=== PATIENT | female | born 1990 | race African-American/Black ===

== ENCOUNTER 2016-05-31 13:56 | Emergency (ER) | payer MEDICAID ==
[~2016-05-31] VITALS: Ht 170.2 cm; Wt 71.0 kg
[2016-05-31] MEDS ORDERED: SODIUM CHLORIDE 0.9% 1,000 ML IV ONE (17:20)
[2016-05-31] MEDS ORDERED: ONDANSETRON HCL 4MG/2ML VIAL IV ONE (17:30)
[2016-05-31 17:46] LABS: BASOPHILS % 0.5 % (0.0-2.0); EOSINOPHILS % 0.7 % (0.0-5.0); HEMOGLOBIN. 10.8 g/dL (12.0-16.0); LYMPHOCYTES % 16.6 % (20.0-50.0); MEAN CORPUSCULAR HEMOGLOBIN 32.1 pg (28.0-32.0); MEAN CORPUSCULAR HGB CONC 33.7 g/dL (31.0-37.0); MEAN CORPUSCULAR VOLUME 95.1 fL (81.0-99.0); MEAN PLATELET VOLUME 8.3 fl (7.4-10.4); MONOCYTES % 6.4 % (2.0-8.0); NEUTROPHILS % 75.8 % (40.0-76.0); PLATELET 167 x1000/uL (130-400); RED BLOOD CELL COUNT 3.37 mill/uL (4.2-5.4); RED CELL DISTRIBUTION WIDTH 14.1 % (11.6-14.6); WHITE BLOOD COUNT 9.9 x1000/uL (4.5-11.0)
[2016-05-31 17:54] LABS: CLARITY URINE CLOUDY (CLEAR); COLOR URINE DARK YELLOW (YELLOW); GLUCOSE URINE NEGATIVE (NEGATIVE); KETONES URINE 3+ (NEGATIVE); LEUKOCYTE ESTERASE URINE 2+ (NEGATIVE); NITRITE URINE NEGATIVE (NEGATIVE); OCCULT BLOOD URINE 2+ (NEGATIVE); PH URINE 7.5 (4.5-8.0); PROTEIN URINE 1+ (NEGATIVE)
[2016-05-31 17:57] LABS: ANION GAP 13; CARBON DIOXIDE 26 mEq/L (21-32); CHLORIDE 102 mEq/L (98-107); INDEX HEMOLYSI 1 (1-3); INDEX ICTERIC 1 (1-4); INDEX LIPEMIC 1 (1-3); UREA NITROGEN BLOOD 7 mg/dL (7-21); eGFR > 60 mL/min (>60)
[2016-05-31 18:14] LABS: B-HCG QUANTITATIVE 9931 mIU/mL (<3)
[2016-05-31] MEDS ORDERED: DEXT 5%/0.45% NACL 500 ML IV ONE (18:15)
[2016-05-31 18:22] LABS: BACTERIA URINE 2+; SQUAMOUS EPITHELIAL CELL URINE 2+ /lpf (RARE/1+); WBC URINE 25-50 /hpf (0-2)
[2016-05-31 20:45] VITALS: BP 105/46
== END 2016-05-31 20:45 | disposition home or self-care (01) ==
LOC: ER 13:57
DX: O20.0 Threatened abortion (principal); O23.42 Unspecified infection of urinary tract in pregnancy, second trimester; O21.1 Hyperemesis gravidarum with metabolic disturbance; O26.872 Cervical shortening, second trimester; O26.892 Other specified pregnancy related conditions, second trimester; Z88.0 Allergy status to penicillin; J45.909 Unspecified asthma, uncomplicated; Z3A.17 17 weeks gestation of pregnancy
CPT/HCPCS: 36415; 76805; 80048; 81001; 84702; 85025; 86850; 86900; 86901; 96361; 96374; 99285; J2405; J7030; X7700

== ENCOUNTER 2016-06-06 15:53 | Inpatient (IN) | payer MEDICAID ==
[~2016-06-06] VITALS: Ht 165.1 cm; Wt 70.8 kg
[2016-06-06] MEDS ORDERED: SODIUM CHLORIDE 0.9% 1,000 ML IV ONE ×2 (17:22→22:22)
[2016-06-06] MEDS ORDERED: ONDANSETRON HCL 4MG/2ML VIAL IV ONE ×2 (17:30→19:45)
[2016-06-06 17:48] LABS: BASOPHILS % 0.4 % (0.0-2.0); EOSINOPHILS % 0.1 % (0.0-5.0); HEMATOCRIT. 34.2 % (36.0-48.0); HEMOGLOBIN. 11.3 g/dL (12.0-16.0); LYMPHOCYTES % 7.2 % (20.0-50.0); MEAN CORPUSCULAR HEMOGLOBIN 31.8 pg (28.0-32.0); MEAN CORPUSCULAR VOLUME 96.3 fL (81.0-99.0); MEAN PLATELET VOLUME 9.3 fl (7.4-10.4); NEUTROPHILS % 89.3 % (40.0-76.0); PLATELET 155 x1000/uL (130-400); RED BLOOD CELL COUNT 3.55 mill/uL (4.2-5.4); RED CELL DISTRIBUTION WIDTH 13.8 % (11.6-14.6); WHITE BLOOD COUNT 13.3 x1000/uL (4.5-11.0)
[2016-06-06 17:51] LABS: CHLORIDE 103 mEq/L (98-107); INDEX HEMOLYSI 1 (1-3); INDEX ICTERIC 1 (1-4); INDEX LIPEMIC 1 (1-3)
[2016-06-06 18:04] LABS: ANION GAP 17; CALCIUM 9.1 mg/dL (8.5-10.1); CARBON DIOXIDE 22 mEq/L (21-32); UREA NITROGEN BLOOD 5 mg/dL (7-21); eGFR > 60 mL/min (>60)
[2016-06-06 18:16] LABS: B-HCG QUANTITATIVE 11351 mIU/mL (<3)
[2016-06-06] MEDS ORDERED: KETOROLAC 30MG/ML VIAL IV ONE (19:45)
[2016-06-06 21:26] LABS: CLARITY URINE CLOUDY (CLEAR); COLOR URINE YELLOW (YELLOW); GLUCOSE URINE NEGATIVE (NEGATIVE); KETONES URINE 2+ (NEGATIVE); LEUKOCYTE ESTERASE URINE 1+ (NEGATIVE); NITRITE URINE NEGATIVE (NEGATIVE); OCCULT BLOOD URINE TRACE (NEGATIVE); PH URINE 7.5 (4.5-8.0); PROTEIN URINE TRACE (NEGATIVE); SPECIFIC GRAVITY URINE 1.023 (1.005-1.030)
[2016-06-06 21:38] LABS: BACTERIA URINE TRACE; SQUAMOUS EPITHELIAL CELL URINE FEW /lpf (RARE/1+); YEAST URINE 1+
[2016-06-06] MEDS ORDERED: NITROFURANTOIN 100MG M/M CAPSULE PO ONE (21:45)
[2016-06-06] MEDS ORDERED: ONDANSETRON 4MG ODT PO PRN (22:30)
[2016-06-07] VITALS (7 sets, daily range): BP systolic 104–125; BP diastolic 63–82
[2016-06-07] MEDS ORDERED: ONDANSETRON HCL 4MG/2ML VIAL ONE (01:19)
[2016-06-07] MEDS: POTASSIUM CHLORIDE INJ 20 MEQ in LACTATED RINGERS 1,000 ML IV SCH ×4 (02:17→21:02)
[2016-06-07] MEDS: PANTOPRAZOLE SODIUM 40 MG/VIAL IV SCH ×2 (02:21→08:56)
[2016-06-07] MEDS: ONDANSETRON HCL 4MG/2ML VIAL IV PRN ×5 (02:21→21:01)
[2016-06-07] MEDS: DOCUSATE SODIUM 100MG CAPSULE PO SCH (17:14)
[2016-06-07] MEDS ORDERED: BUTORPHANOL TARTRATE 2 MG/ML VIAL IV PRN (22:15)
[2016-06-08] MEDS ORDERED: BUTORPHANOL TARTRATE 2 MG/ML VIAL IV PRN (00:45)
[2016-06-08 00:59] VITALS: BP 100/56
[2016-06-08] MEDS: ONDANSETRON HCL 4MG/2ML VIAL IV PRN ×2 (01:00→08:44)
[2016-06-08 04:00] VITALS: BP 95/49
[2016-06-08] MEDS: POTASSIUM CHLORIDE INJ 20 MEQ in LACTATED RINGERS 1,000 ML IV SCH ×2 (07:06→18:57)
[2016-06-08 08:00] VITALS: BP 95/44
[2016-06-08] MEDS: DOCUSATE SODIUM 100MG CAPSULE PO SCH ×2 (08:42→18:57)
[2016-06-08] MEDS: PANTOPRAZOLE SODIUM 40 MG/VIAL IV SCH (08:43)
[2016-06-08 12:00] VITALS: BP 93/58
[2016-06-08 16:00] VITALS: BP 105/58
[2016-06-08 19:51] VITALS: BP 93/58
== END 2016-06-08 20:30 | disposition home or self-care (01) | DRG 566 ==
LOC: ER 15:56 → 6EST 22:23
PROVIDERS: ADMIT Obstetrics & Gynecology; ATTEND Obstetrics & Gynecology
DX: O21.0 Mild hyperemesis gravidarum (principal); G40.909 Epilepsy, unspecified, not intractable, without status epilepticus; J45.909 Unspecified asthma, uncomplicated; O99.512 Diseases of the respiratory system complicating pregnancy, second trimester; Z88.0 Allergy status to penicillin; Z3A.19 19 weeks gestation of pregnancy; O99.89 Other specified diseases and conditions complicating pregnancy, childbirth and the puerperium
CPT/HCPCS: 36415; 76805; 80048; 81001; 84702; 85025; 86850; 86900; 96361; 96374; 96375; 96376; 99285; C9113; J0595; J1885; J2405; J3480; J7030; J7120; Q0162

== ENCOUNTER 2016-06-28 14:34 | Observation (INO) | payer SELFPAY ==
[~2016-06-28] VITALS: Ht 170.2 cm; Wt 70.8 kg
[2016-06-28] MEDS ORDERED: ONDA4TAB5 PO (15:37)
[2016-06-28] MEDS ORDERED: PREN-88 PO (15:37)
[2016-06-28] MEDS ORDERED: LACTATED RINGERS 1,000 ML IV SCH (16:00)
[2016-06-28] MEDS ORDERED: ONDANSETRON HCL 4MG/2ML VIAL IV SCH (16:00)
[2016-06-28 16:02] LABS: BASOPHILS % 0.1 % (0.0-2.0); HEMATOCRIT. 33.8 % (36.0-48.0); HEMOGLOBIN. 11.3 g/dL (12.0-16.0); LYMPHOCYTES % 9.3 % (20.0-50.0); MEAN CORPUSCULAR HEMOGLOBIN 31.6 pg (28.0-32.0); MEAN CORPUSCULAR HGB CONC 33.4 g/dL (31.0-37.0); MEAN CORPUSCULAR VOLUME 94.7 fL (81.0-99.0); MEAN PLATELET VOLUME 9.3 fl (7.4-10.4); MONOCYTES % 5.8 % (2.0-8.0); NEUTROPHILS % 84.8 % (40.0-76.0); PLATELET 186 x1000/uL (130-400); RED BLOOD CELL COUNT 3.57 mill/uL (4.2-5.4); RED CELL DISTRIBUTION WIDTH 13.7 % (11.6-14.6); WHITE BLOOD COUNT 12.2 x1000/uL (4.5-11.0)
[2016-06-28 16:16] LABS: ALANINE AMINOTRANSFERASE 79 IU/L (13-61); ALBUMIN 3.8 g/dL (3.4-5.0); ANION GAP 18; CALCIUM 9.9 mg/dL (8.5-10.1); CARBON DIOXIDE 22 mEq/L (21-32); CHLORIDE 102 mEq/L (98-107); INDEX HEMOLYSI 5 (1-3); INDEX ICTERIC 1 (1-4); INDEX LIPEMIC 1 (1-3); UREA NITROGEN BLOOD 7 mg/dL (7-21); eGFR > 60 mL/min (>60)
[2016-06-28] MEDS ORDERED: ONDANSETRON HCL 4MG/2ML VIAL IV PRN (17:15)
[2016-06-28] MEDS ORDERED: SODIUM CHLORIDE 0.9% INJ 3ML FLUSH IVF SCH (18:00)
[2016-06-28 18:15] VITALS: BP 111/65
[2016-06-28] MEDS: ONDANSETRON HCL 4MG/2ML VIAL IV PRN ×2 (19:36→23:54)
[2016-06-28] MEDS: LACTATED RINGERS 1,000 ML IV SCH (19:43)
[2016-06-28 21:00] VITALS: BP 107/89
[2016-06-29] MEDS: LACTATED RINGERS 1,000 ML IV SCH ×3 (03:28→17:36)
[2016-06-29] MEDS: ONDANSETRON HCL 4MG/2ML VIAL IV PRN ×5 (03:56→20:13)
[2016-06-29 06:00] VITALS: BP 110/70
== END 2016-06-29 20:30 | disposition home or self-care (01) ==
LOC: ER 14:46 → L&D 14:54 → 7EST PP/OB 18:09 → L&D 06-29 07:46
PROVIDERS: ADMIT Obstetrics & Gynecology; ATTEND Obstetrics & Gynecology
DX: O26.892 Other specified pregnancy related conditions, second trimester (principal); R10.9 Unspecified abdominal pain; Z3A.23 23 weeks gestation of pregnancy; Z59.0 Homelessness
CPT/HCPCS: 36415; 76815; 80053; 85025; 96361; 96374; 96376; 99281; G0378; J2405; J7120; 96360; 96365; 99285